=== PATIENT | female | born 1965 | race Caucasian/White ===

== ENCOUNTER 2020-07-04 19:38 | Inpatient (IN) ==
[2020-07-04] MEDS ORDERED: SODIUM CHLORIDE 0.9% 1000ML 1,000 ML IV ONE (20:05)
[2020-07-04] MEDS ORDERED: METOCLOPRAMIDE HCL INJ 5 MG/ML 2 ML VIAL IV STA (20:05)
--- NOTE | 2020-07-04 20:09 | Emergency Department Note ---
Impression & Plan Pneumonia due to COVID-19 virus, Weakness, Breathlessness ED Provider Note Provider: Markus Iraheta MD DATE OF SERVICE: 07/04/2020 CHIEF COMPLAINT: Weakness, shortness of breath HISTORY OF PRESENT ILLNESS: Patient is a 55-year-old female history of hypothyroidism presenting today reporting significant weakness shortness of breath and myalgias over the past several days. Patient states she began to be sick about 8 days ago. Went and was tested 2 days ago at [facility] and told she had coronavirus. Isolating at home with her . He is ill but in better condition than her per her report and states that he has begun to improve. She states she is had dry cough with nausea and some loose stool. Denies significant abdominal pain. States shortness of breath and headache and diffuse myalgias. Denies rash. Denies falls or syncope. Has been using regularly Tylenol and Motrin. Last had Tylenol around 3 PM and Advil around 6 PM. Has been using [id number] medications without significant improvement. States her fevers persisted to be high and she just feels very very weak. Attempted to throw to make her self feel better but this did not help with her nausea. Has tried some Zofran at home for nausea and took symptoms before coming in with mild improvement. Denies leg swelling. REVIEW OF SYSTEMS: A total of 10 review of systems was obtained and negative except as stated above in the HPI. PAST MEDICAL HISTORY: As noted above MEDICATIONS: Reviewed home medication listing SOCIAL HISTORY: , lives at home, non-smoker PHYSICAL EXAM: GENERAL: alert and oriented in no acute distress on stretcher but appears fatigued Head: normocephalic and atraumatic EYES: No injection, discharge or icterus. NECK: Trachea midline. Supple. ENT: Mucous membranes pink and moist. Pharynx without erythema or exudate. LUNGS: Airway patent. No retractions. HEART: Regular rate and rhythm. No chest wall tenderness ABDOMEN: Soft and non-tender, without guarding or rebound. SKIN: Acyanotic, warm, dry, without rashes EXTREMITIES: Without swelling or deformity NEUROLOGICAL: No focal deficits. No aphasia. No facial droop or slurred speech. EK bpm normal sinus rhythm. No PVC or PAC. No acute ST segment elevation or depression appreciated with a normal QTC. There are nonspecific precordial T wave changes. CONTINUOUS CARDIAC MONITORING: was ordered and showed a heart rate of 80s bpm in normal sinus rhythm 1 view chest x-ray: Per my interpretation bilateral predominantly lower lung inflammatory changes without consolidative pneumonia visualized. No large effusions or pneumothorax noted. Patient's laboratory studies and imaging reviewed. Differential includes Infection, dehydration, metabolic abnormality, hypo/hyperglycemia, electrolyte disturbance, anemia, hypoxia, cardiac sources, intracerebral event, toxicologic, neurologic, as well as other pathologies. IMPRESSION/MEDICAL DECISION MAKING: Patient presents with symptomatology is likely related to her diagnosis of COVID-19. However given her significant fevers and persistent symptoms broad differential was entertained. Labs were sent for D-dimer sent. Troponin and EKG were obtained. Just took ibuprofen recently and to close for Tylenol for antipyretic effect. Given some IV fluid as well as Reglan to help with nausea. Chest x-ray obtained and per my interpretation system evidence of inflammatory changes consistent with viral pneumonitis from Covid. No evidence of pneumothorax or classic pneumonia. D-dimer was elevated the CT of the chest will be obtained to exclude PE. Preliminary stat read report as below without evidence of PE. CRP mildly elevated 6.8 likely inflammatory. Leukopenia likely related to Covid also noted. Mild hypokalemia 3.4 but electrolytes otherwise had significant abnormality. Discussed with the patient and states she is havin g some improvement. Is now due for Tylenol which was ordered. Patient felt some improvement of symptoms while here however still felt quite weak and short of breath and given that she desaturated with exertion at home and her general weekend fatigued appearance she wished for further observation here in the hospital and the hospitalist was contacted. DIAGNOSIS: COVID-19 pneumonia, weakness, shortness of breath DISPOSITION: Hospitalist will evaluate Patient was agreeable with this plan. Preliminary Findings Only See Final Report For Complete Findings CTA CHEST: No pulmonary embolus. Bilateral pulmonary infiltrates. Radiologist: Litzy Schaefer M.D. Study ready at 22:09 and initial results transmitted at 22:18 Past Med/Surg History Medical History (Updated 07/04/20 @ 21:09 by Markus Iraheta M.D.) Hypothyroidism Social History Smoking Status: Never smoker Preferred Language: Serbian Feels Safe at Home: Yes Home Meds Home Medications Medication Instructions Recorded Confirmed bupropion HCl 150 mg PO BID 07/28/18 07/28/18 escitalopram oxalate 10 mg PO HS 07/28/18 07/28/18 levothyroxine 100 mg PO DAILY 07/28/18 07/28/18 oseltamivir 75 mg PO DAILY 07/28/18 07/28/18 Results & Data (ED) Vital Signs Vital Signs - 24 hr 07/04/20 19:46 07/04/20 19:59 07/04/20 20:32 Temperature 38.1 C H Temperature Source Temporal Artery Scan Pulse Rate 109 H 84 83 Pulse Rate from SpO2 Sensor 84 83 Respiratory Rate 20 15 20 Blood Pressure 119/63 131/89 101/65 Blood Pressure Mean 81 103 77 Pulse Oximetry 94 97 98 Oxygen Delivery Method Room Air Room Air Room Air Sepsis Recent Fever Within 48 Hours Yes Sepsis New/Unexplained Change in Mental Status No Sepsis Action Taken by Nursing No Action Required 07/04/20 21:00 07/04/20 21:30 Temperature Temperature Source Pulse Rate 85 89 Pulse Rate from SpO2 Sensor 86 89 Respiratory Rate 17 17 Blood Pressure 125/63 120/62 Blood Pressure Mean 83 81 Pulse Oximetry 95 95 Oxygen Delivery Method Room Air Room Air Sepsis Recent Fever Within 48 Hours Sepsis New/Unexplained Change in Mental Status Sepsis Action Taken by Nursing Laboratory Data Result diagrams: 07/04/20 20:18 07/04/20 20:18 Lab Results 07/04/20 07/04/20 07/04/20 Range/Units 20:18 20:18 20:18 WBC 2.59 L (4.8-10.8) K/uL RBC 3.84 L (4.2-5.4) M/uL Hgb 11.9 L (12.0-16.0) g/dL Hct 33.8 L (37-47) % MCV 88.0 (80-100) fL MCH 31.0 (25-34) pg MCHC 35.2 (32-36) g/dL RDW Std Deviation 43.6 (36.4-46.3) fL RDW Coeff of Jillian 13.5 (11.5-14.5) % Plt Count 158 (130-400) K/uL MPV 10.6 H (7.4-10.4) fL Immature Gran % (Auto) 0.0 % Neut % (Auto) 76.9 % Lymph % (Auto) 16.2 % Island % (Auto) 6.9 % Eos % (Auto) 0.0 % Baso % (Auto) 0.0 % Neut # (Auto) 1.99 (1.4-6.5) K/uL Lymph # (Auto) 0.42 L (1.2-3.4) K/uL Island # (Auto) 0.18 (0.11-0.59) K/uL Eos # (Auto) 0.00 (0-0.5) K/uL Baso # (Auto) 0.00 (0-0.2) K/uL Immature Gran # (Auto) 0.00 (0.00-0.02) K/uL PT 9.8 (9.0-12.0) Seconds INR 1.0 (0.9-1.1) D-Dimer 1450 H* (0-500) ug/L FEU Sodium 136 (136-145) mmol/L Potassium 3.4 L (3.5-5.1) mmol/L Chloride 104 (98-107) mmol/L Carbon Dioxide 25 (21-32) mmol/L Anion Gap 7.0 (3-11) BUN 16 (7-18) mg/dl Creatinine 0.96 (0.6-1.2) mg/dl Est Cr Clr Drug Dosing 73.5 ml/min Est GFR ( Amer) 77.7 Est GFR (Non-Af Amer) 67.0 BUN/Creatinine Ratio 16.3 (10-20) Glucose 90 (70-99) mg/dl Lactate (0.4-2.0) mmol/L Calcium 8.6 (8.5-10.1) mg/dl Magnesium 2.0 (1.8-2.4) mg/dl Total Bilirubin 0.3 (0.2-1) mg/dl AST 26 (15-37) U/L ALT 31 (12-78) U/L Alkaline Phosphatase 70 (45-117) U/L Troponin I < 0.015 (0-0.045) ng/ml C-Reactive Protein 6.85 H (0-0.29) mg/dl Total Protein 6.9 (6.4-8.2) gm/dl Albumin 3.4 (3.4-5.0) gm/dl Globulin 3.5 (2.5-4.0) gm/dl Albumin/Globulin Ratio 1.0 (0.9-2) Lipase 183 (73-393) U/L Procalcitonin (0-0.5) ng/ml 07/04/20 07/04/20 Range/Units 20:18 20:18 WBC (4.8-10.8) K/uL RBC (4.2-5.4) M/uL Hgb (12.0-16.0) g/dL Hct (37-47) % MCV (80-100) fL MCH (25-34) pg MCHC (32-36) g/dL RDW Std Deviation (36.4-46.3) fL RDW Coeff of Jillian (11.5-14.5) % Plt Count (130-400) K/uL MPV (7.4-10.4) fL Immature Gran % (Auto) % Neut % (Auto) % Lymph % (Auto) % Island % (Auto) % Eos % (Auto) % Baso % (Auto) % Neut # (Auto) (1.4-6.5) K/uL Lymph # (Auto) (1.2-3.4) K/uL Island # (Auto) (0.11-0.59) K/uL Eos # (Auto) (0-0.5) K/uL Baso # (Auto) (0-0.2) K/uL Immature Gran # (Auto) (0.00-0.02) K/uL PT (9.0-12.0) Seconds INR (0.9-1.1) D-Dimer (0-500) ug/L FEU Sodium (136-145) mmol/L Potassium (3.5-5.1) mmol/L Chloride (98-107) mmol/L Carbon Dioxide (21-32) mmol/L Anion Gap (3-11) BUN (7-18) mg/dl Creatinine (0.6-1.2) mg/dl Est Cr Clr Drug Dosing ml/min Est GFR ( Amer) Est GFR (Non-Af Amer) BUN/Creatinine Ratio (10-20) Glucose (70-99) mg/dl Lactate 1.2 (0.4-2.0) mmol/L Calcium (8.5-10.1) mg/dl Magnesium (1.8-2.4) mg/dl Total Bilirubin (0.2-1) mg/dl AST (15-37) U/L ALT (12-78) U/L Alkaline Phosphatase (45-117) U/L Troponin I (0-0.045) ng/ml C-Reactive Protein (0-0.29) mg/dl Total Protein (6.4-8.2) gm/dl Albumin (3.4-5.0) gm/dl Globulin (2.5-4.0) gm/dl Albumin/Globulin Ratio (0.9-2) Lipase (73-393) U/L Procalcitonin < 0.05 (0-0.5) ng/ml Administered Medications Discontinued Medications Acetaminophen (Acetaminophen 500 Mg Tab) 1,000 mg PO NOW STA Stop: 07/04/20 21:29 Last Admin: 07/04/20 21:33 Dose: 1,000 mg Documented by: [id number] Sodium Chloride (Nss 1000ml) 1,000 mls @ 999 mls/hr IV .Q1H1M ONE Stop: 07/04/20 21:05 Last Infusion: 07/04/20 21:33 Dose: 0 mls/hr Documented by: [id number] Admin: 07/04/20 20:35 Dose: 999 mls/hr Documented by: [id number] Ioversol (Optiray 320 125ml) 115 ml IV ONCE ONE Stop: 07/04/20 21:57 Last Admin: 07/04/20 21:59 Dose: 115 ml Documented by: [id number] Metoclopramide HCl (Metoclopramide Hcl Inj 5 Mg/Ml 2 Ml Vial) 10 mg IV NOW STA Stop: 07/04/20 20:06 Last Admin: 07/04/20 20:35 Dose: 10 mg Documented by: [id number] Discharge Plan Visit Data Chief Complaint: Shortness of Breath/Dyspnea Stated Complaint: COVID POSITIVE, SOB ED Provider: Markus Iraheta Discharge Problem: Pneumonia due to COVID-19 virus, Weakness, Breathlessness Patient Disposition: Being Evaluated by Hospitalist Forms Stand Alone Forms: My [facility] [place] Patent Invarium Prescriptions Prescriptions: No Action bupropion HCl 150 mg tablet sustained-release 12 hr 150 mg PO BID RF: 0 levothyroxine 100 mcg tablet 100 mg PO DAILY RF: 0 oseltamivir 75 mg capsule 75 mg PO DAILY RF: 0 escitalopram oxalate 10 mg tablet 10 mg PO HS RF: 0 Referrals Referrals: Emma Howell DO [Primary Care Provider] -
[2020-07-04 20:49] LABS: Prothrombin Time 9.8 Seconds (9.0-12.0)
[2020-07-04 20:53] LABS: Hematocrit (blood only) 33.8 % (37-47); Hemoglobin 11.9 g/dL (12.0-16.0); Lymphocytes # (auto) 0.42 K/uL (1.2-3.4); Lymphocytes % (auto) 16.2 %; Mean Corpuscular Hgb Conc 35.2 g/dL (32-36); Mean Platelet Volume 10.6 fL (7.4-10.4); Monocytes # (auto) 0.18 K/uL (0.11-0.59); Monocytes % (auto) 6.9 %; Neutrophils # (auto) 1.99 K/uL (1.4-6.5); Neutrophils % (auto) 76.9 %; Platelet Count 158 K/uL (130-400); RDW Coefficient of Variation 13.5 % (11.5-14.5); RDW Standard Deviation 43.6 fL (36.4-46.3); Red Blood Count 3.84 M/uL (4.2-5.4); White Blood Count 2.59 K/uL (4.8-10.8)
[2020-07-04 21:01] LABS: D Dimer 1450 ug/L FEU (0-500)
[2020-07-04 21:03] LABS: Alanine Aminotransferase 31 U/L (12-78); Albumin Level 3.4 gm/dl (3.4-5.0); Aspartate Aminotransferase 26 U/L (15-37); BUN Creatinine Ratio 16.3 (10-20); Blood Urea Nitrogen 16 mg/dl (7-18); C Reactive Protein 6.85 mg/dl (0-0.29); Calcium 8.6 mg/dl (8.5-10.1); Carbon Dioxide 25 mmol/L (21-32); Chloride 104 mmol/L (98-107); Creatinine Clr Calc Pharmacy 73.5 ml/min; Est GFR (African American) 77.7; Glucose 90 mg/dl (70-99); Lipase 183 U/L (73-393); Potassium 3.4 mmol/L (3.5-5.1); Sodium 136 mmol/L (136-145)
[2020-07-04 21:08] LABS: Alkaline Phosphatase 70 U/L (45-117); Bilirubin,Total 0.3 mg/dl (0.2-1); Globulin 3.5 gm/dl (2.5-4.0); Total Protein 6.9 gm/dl (6.4-8.2); Troponin I < 0.015 ng/ml (0-0.045)
--- NOTE | 2020-07-04 21:13 | XRay Report ---
XR chest 1V portable HISTORY: Fever COMPARISON: None. FINDINGS: No pneumothorax. No pleural effusions. The heart is normal in size. There are patchy bilate ral mid to lower lung zone airspace opacities. This likely represents a viral pneumonia. No evidence for pulmonary edema. Dextroscoliosis of the thoracic spine. IMPRESSION: Patchy bilateral mid to lower lung zone airspace opacities. This likely represents a viral pneumonia. ACT 112: Negative or not required by law. Electronically signed by: Marc Morales M.D. 07/04/2020 9:11 PM
[2020-07-04] MEDS ORDERED: ACETAMINOPHEN 500 MG TAB PO STA (21:28)
[2020-07-04] MEDS ORDERED: POTASSIUM CHLORIDE CRTAB 20 MEQ TABCR PO STA (21:45)
[2020-07-04] MEDS ORDERED: OPTIRAY 320 125ml IV ONE (21:56)
--- NOTE | 2020-07-04 23:18 | History & Physical Report ---
Date of Service July 04, 2020 Assessment & Plan (1) Pneumonia due to COVID-19 virus: Patient nontoxic. mood disorder, at baseline hypothyroidism, euthyroid as of recent outpatient TSH Hypokalemia secondary to poor p.o. intake F Supportive management for non-severe COVID-19 illness. IVF, replace potassium DVT prophylaxis with Lovenox subcu Full code Text document was generated using [employer] voice recognition software. It may contain grammatical or spelling errors. Kindly contact undersigned for clarification of any documentation item in question. History of Present Illness Chief Complaint: Shortness of breath, chest heaviness Primary Care Provider: Emma Howell DO History obtained from patient and records. Medical history significant for mood disorder, hypothyroidism, gestational DM as per records. Eight days ago patient noted fever, chills, nausea, dry cough, chest congestion symptoms. Sick COVID-19 contacts at home. 2 days ago, patient noted chest heaviness and shortness of breath. Outpatient COVID-19 test was positive. Home care and quarantine recommended by PCP. Patient consulted ER for worsening symptoms. Patient uncomfortable going home. Medical History as above Surgical History : Bladder surgery, colposcopy Family History : Colon cancer, stroke Personal/Social history : Non-smoker, occasional EtOH intake, art director Allergies Allergy/AdvReac Type Severity Reaction Status Date / Time amphetamine [From Adderall] Allergy Severe BLISTERED Verified 07/04/20 23:03 SORES ON ENTIRE BACK OF BODY dextroamphetamine Allergy Severe BLISTERED Verified 07/04/20 23:03 [From Adderall] SORES ON ENTIRE BACK OF BODY povidone-iodine Allergy Intermediate SKIN Verified 07/04/20 23:03 [From Betadine] IRRITATION IF EXPOSED soap [From Betadine] Allergy Intermediate SKIN Verified 07/04/20 23:03 IRRITATION IF EXPOSED Sulfa (Sulfonamide Allergy Intermediate TRAVIS Verified 07/04/20 23:03 Antibiotics) SYNDROME nickel Allergy Mild SKIN Verified 07/04/20 23:03 IRRITATION latex Allergy Rash Verified 07/05/20 03:36 zolpidem [From Ambien] Allergy Rash Verified 07/05/20 00:44 Home Medications Medication Instructions Recorded Confirmed Type bupropion HCl 150 mg PO BID17 07/28/18 07/05/20 History escitalopram oxalate 10 mg PO HS 07/28/18 07/04/20 History levothyroxine 100 mg PO DAILY 07/28/18 07/04/20 History Lactobacillus acidophilus 10,000 mmu cells PO DAILY 07/04/20 07/04/20 History [Probiotic] modafinil See Rx Instructions .ROUTE .COMPLEX 07/04/20 07/05/20 History multivitamin 1 tab PO DAILY 07/04/20 07/04/20 History omega 2-dwo-fzy-fish oil [Fish Oil] 1 cap PO DAILY 07/04/20 07/04/20 History ondansetron 4 mg PO DIRECTED PRN 07/04/20 07/04/20 History turmeric 400 mg PO DAILY 07/04/20 07/04/20 History Past Med/Surg History Medical History (Updated 07/04/20 @ 21:09 by Markus Iraheta M.D.) Hypothyroidism Social History Smoking Status: Never smoker Hx Alcohol Use: No Hx Substance Use: No Preferred Language: Georgian Communication Ability: Effective Beliefs That Will Affect Care: None Current Living Situation: Family Other Information That Helps Us Care for You: No Feels Safe at Home: Yes Safety Concerns: Feels Safe At This Time Assistive Devices: Glasses Review of Systems Review of Systems: As per HPI, all 10 systems reviewed, all other ROS negative Physical Exam Physical Exam: GENERAL: Slightly uncomfortable, slightly anxious, pleasant, no respiratory distress SKIN: Normal color, warm HEENT: Bespectacled, pink palpebral conjunctivae, no ptosis, dry buccal mucosa NECK : Supple, no tenderness CHEST : Decreased breath sounds, anterior chest wall tenderness HEART : RRR, no obvious murmurs ABDOMEN: Some distention, nontender EXTREMITIES : No LE swelling/tenderness, no other conspicuous deformities noted NEUROLOGIC : Coherent, no facial asymmetry, no other gross focality Results & Data Results & Data ([facility]) Vital Signs (Past 12 Hours) Vital Signs Temp Pulse Resp BP Pulse Ox 07/04/20 21:30 89 17 120/62 95 07/04/20 21:00 85 17 125/63 95 07/04/20 20:32 83 20 101/65 98 07/04/20 19:59 84 15 131/89 97 07/04/20 19:46 38.1 C H 109 H 20 119/63 94 Laboratory Results Laboratory Results WBC 2.59 K/uL (4.8-10.8) L 07/04/20 20:18 RBC 3.84 M/uL (4.2-5.4) L 07/04/20 20:18 Hgb 11.9 g/dL (12.0-16.0) L 07/04/20 20:18 Hct 33.8 % (37-47) L 07/04/20 20:18 MCV 88.0 fL (80-100) 07/04/20 20:18 MCH 31.0 pg (25-34) 07/04/20 20:18 MCHC 35.2 g/dL (32-36) 07/04/20 20:18 RDW Std Deviation 43.6 fL (36.4-46.3) 07/04/20 20:18 RDW Coeff of Jillian 13.5 % (11.5-14.5) 07/04/20 20:18 Plt Count 158 K/uL (130-400) 07/04/20 20:18 MPV 10.6 fL (7.4-10.4) H 07/04/20 20:18 Immature Gran % (Auto) 0.0 % 07/04/20 20:18 Neut % (Auto) 76.9 % 07/04/20 20:18 Lymph % (Auto) 16.2 % 07/04/20 20:18 Meagher % (Auto) 6.9 % 07/04/20 20:18 Eos % (Auto) 0.0 % 07/04/20 20:18 Baso % (Auto) 0.0 % 07/04/20 20:18 Neut # (Auto) 1.99 K/uL (1.4-6.5) 07/04/20 20:18 Lymph # (Auto) 0.42 K/uL (1.2-3.4) L 07/04/20 20:18 Meagher # (Auto) 0.18 K/uL (0.11-0.59) 07/04/20 20:18 Eos # (Auto) 0.00 K/uL (0-0.5) 07/04/20 20:18 Baso # (Auto) 0.00 K/uL (0-0.2) 07/04/20 20:18 Immature Gran # (Auto) 0.00 K/uL (0.00-0.02) 07/04/20 20:18 PT 9.8 Seconds (9.0-12.0) 07/04/20 20:18 INR 1.0 (0.9-1.1) 07/04/20 20:18 D-Dimer 1450 ug/L FEU (0-500) H* 07/04/20 20:18 Sodium 136 mmol/L (136-145) 07/04/20 20:18 Potassium 3.4 mmol/L (3.5-5.1) L 07/04/20 20:18 Chloride 104 mmol/L (98-107) 07/04/20 20:18 Carbon Dioxide 25 mmol/L (21-32) 07/04/20 20:18 Anion Gap 7.0 (3-11) 07/04/20 20:18 BUN 16 mg/dl (7-18) 07/04/20 20:18 Creatinine 0.96 mg/dl (0.6-1.2) 07/04/20 20:18 Est Cr Clr Drug Dosing 73.5 ml/min 07/04/20 20:18 Est GFR ( Amer) 77.7 07/04/20 20:18 Est GFR (Non-Af Amer) 67.0 07/04/20 20:18 BUN/Creatinine Ratio 16.3 (10-20) 07/04/20 20:18 Glucose 90 mg/dl (70-99) 07/04/20 20:18 Lactate 1.2 mmol/L (0.4-2.0) 07/04/20 20:18 Calcium 8.6 mg/dl (8.5-10.1) 07/04/20 20:18 Magnesium 2.0 mg/dl (1.8-2.4) 07/04/20 20:18 Total Bilirubin 0.3 mg/dl (0.2-1) 07/04/20 20:18 AST 26 U/L (15-37) 07/04/20 20:18 ALT 31 U/L (12-78) 07/04/20 20:18 Alkaline Phosphatase 70 U/L (45-117) 07/04/20 20:18 Troponin I < 0.015 ng/ml (0-0.045) 07/04/20 20:18 C-Reactive Protein 6.85 mg/dl (0-0.29) H 07/04/20 20:18 Total Protein 6.9 gm/dl (6.4-8.2) 07/04/20 20:18 Albumin 3.4 gm/dl (3.4-5.0) 07/04/20 20:18 Globulin 3.5 gm/dl (2.5-4.0) 07/04/20 20:18 Albumin/Globulin Ratio 1.0 (0.9-2) 07/04/20 20:18 Lipase 183 U/L (73-393) 07/04/20 20:18 Procalcitonin < 0.05 ng/ml (0-0.5) 07/04/20 20:[address] chest initial read: No pulmonary embolus. Bilateral pulmonary infiltrates EKG as per my interpretation : Rate 80, NSR, normal axis, T wave abnormality septal leads
[2020-07-05] MEDS ORDERED: LEVALBUTEROL TARTRATE 15 GM HFA.AER.AD INH STA (01:05)
[2020-07-05] MEDS ORDERED: traMADol HCL 50 MG TABLET PO PRN (01:05)
[2020-07-05] MEDS ORDERED: ACETAMINOPHEN 325 MG TAB PO PRN (01:05)
[2020-07-05] MEDS ORDERED: LORazepam 0.5 MG/1 ML VIAL IV PRN (01:05)
[2020-07-05] MEDS ORDERED: buPROPion SR 150 MG TABCR PO SCH (01:05)
[2020-07-05] MEDS ORDERED: POTASSIUM CHLORIDE 40 MEQ in SODIUM CHLORIDE 0.9% 1000ML 1,000 ML IV ONE (01:45)
[2020-07-05] MEDS: guaiFENesin 600 MG TABCR PO SCH ×3 (02:06→20:33)
[2020-07-05] MEDS: ESCITALOPRAM OXALATE 10 MG TAB PO SCH ×2 (02:06→20:33)
[2020-07-05] MEDS: LEVOTHYROXINE SODIUM 100 MCG TABLET PO SCH (05:28)
[2020-07-05 05:50] LABS: Appearance Urine Clear (Clear); Bacteria Urine Automated Negative (Negative); Bilirubin Urine Negative (Negative); Blood Urine Trace (Negative); Cast Urine Automated 0 /lpf (0-5); Color Urine Yellow; Epithelial Cell Urine Auto 20-30 /lpf (0-5); Glucose Urine UA Negative (Negative); Ketones Urine Negative (Negative); Leukocyte Esterase Urine Trace (Negative); Nitrite Urine Negative (Negative); Protein Urine Negative (Negative); RBC Urine Automated 0-4 /hpf (0-4); Urobilinogen Urine Negative (Negative)
[2020-07-05 07:01] LABS: Hematocrit (blood only) 35.1 % (37-47); Hemoglobin 11.8 g/dL (12.0-16.0); Immature Granulocytes # (auto) 0.01 K/uL (0.00-0.02); Immature Granulocytes % (auto) 0.4 %; Lymphocytes # (auto) 0.44 K/uL (1.2-3.4); Lymphocytes % (auto) 16.3 %; Mean Corpuscular Hemoglobin 30.6 pg (25-34); Mean Corpuscular Hgb Conc 33.6 g/dL (32-36); Mean Corpuscular Volume 90.9 fL (80-100); Mean Platelet Volume 10.4 fL (7.4-10.4); Monocytes # (auto) 0.18 K/uL (0.11-0.59); Monocytes % (auto) 6.7 %; Neutrophils # (auto) 2.07 K/uL (1.4-6.5); Neutrophils % (auto) 76.6 %; Platelet Count 135 K/uL (130-400); RDW Coefficient of Variation 13.8 % (11.5-14.5); RDW Standard Deviation 46.3 fL (36.4-46.3); Red Blood Count 3.86 M/uL (4.2-5.4)
[2020-07-05 07:53] LABS: BUN Creatinine Ratio 13.9 (10-20); Calcium 7.7 mg/dl (8.5-10.1); Creatinine Clr Calc Pharmacy 90.9 ml/min; Est GFR (African American) 99.9; Est GFR (Non-African American) 86.2
[2020-07-05 08:04] LABS: Ferritin 229.5 ng/ml (8-388)
--- NOTE | 2020-07-05 08:18 | CT Scan Report ---
CT ANGIOGRAM OF THE CHEST CLINICAL HISTORY: Dyspnea. Elevated d-dimer. Covid. COMPARISON STUDY: Chest x-ray dated 07/04/2020. TECHNIQUE: Following the IV administration of 115 cc of Optiray 320, CT angiogram of the chest was pe rformed from the upper abdomen to the thoracic inlet utilizing the pulmonary embolus protocol. Images are reviewed in the axial, sagittal, and coronal planes. 3-D MIPS images are created and assessed. I V contrast was administered without complication. A dose lowering technique was utilized adhering to the principles of ALARA. CT DOSE: 345.75 mGy.cm FINDINGS: Thyroid: Atrophic. Thoracic aorta: The thoracic aorta is normal in caliber and demonstrates standard 3-vessel arch anato my. No dissection is seen. Pulmonary vasculature: The pulmonary trunk is normal in caliber. There are no filling defects identif ied in main, lobar, or segmental pulmonary branches to suggest pulmonary embolus. Heart: The heart is normal in size and without pericardial effusion. Lungs and pleural spaces: Multifocal airspace consolidation is seen throughout both lungs. No pleural effusion is identified. The trachea and central airways are clear. Mediastinum: There is no mediastinal lymphadenopathy. Connie: Clear. Axillae: There is no axillary lymphadenopathy. Upper abdomen: Partially visualized upper abdominal viscera is within normal limits. Skeletal structures: No lytic or blastic bony lesions are seen. IMPRESSION: 1. There is no evidence of pulmonary embolus in the main, lobar, or segmental pulmonary arteries. 2. Multifocal airspace consolidation is seen throughout both lungs. The appearance is consistent with the reported history of a viral pneumonia. Radiographic follow-up to resolution is recommended. 3. No pleural effusion is identified. 4. Additional findings as above. ACT 112: Negative or not required by law. Electronically signed by: Arvind Girard M.D. 07/05/2020 8:17 AM
[2020-07-05] MEDS: MULTIVITAMIN TAB PO SCH (08:50)
[2020-07-05] MEDS: buPROPion SR 150 MG TABCR PO SCH ×2 (08:50→18:33)
[2020-07-05] MEDS: ADVANCED PROBIOTIC 1250 MG CAPSULE PO SCH (08:52)
[2020-07-05] MEDS: ENOXAPARIN INJ 40 MG/0.4 ML SYR SQ SCH (08:53)
[2020-07-05] MEDS ORDERED: NON-FORMULARY MEDICATION (Lactobacillus Acidophilus [Probiotic] 10 billion cell Capsule) PO SCH (09:00)
[2020-07-05] MEDS ORDERED: dexAMETHasone 6 MG in SYRINGE 0 ML IV SCH (09:15)
[2020-07-05] MEDS: modafiniL 100 MG TAB PO SCH ×2 (10:01→13:16)
[2020-07-05] MEDS: FAMOTIDINE 10 MG TABLET PO SCH ×2 (10:02→20:33)
[2020-07-05] MEDS: DOXYCYCLINE HYCLATE 100 MG CAP PO SCH ×2 (10:02→20:34)
--- NOTE | 2020-07-05 13:36 | Hospitalist Progress Note ---
Date of Service July 05, 2020 Assessment & Plan (1) Pneumonia due to COVID-19 virus: Multifocal COVID pneumonia -CTA: There is no evidence of pulmonary embolus in the main, lobar, or segmental pulmonary arteries. Multifocal airspace consolidation is seen throughout both lungs. The appearance is consistent with the reported history of a viral pneumonia. Radiographic follow-up to resolution is recommended. No pleural effusion is identified. Procalcitonin: 0.05 Troponin negative CRP:6.85 Ferritin:229 D-Dimer:1450 Blood Cultures obtained Oxygen levels transiently dropped to 92% as per records No indication for Remdesivir, Coalescent plasma given onset of symptoms Isolation precautions--Airborne/Contact Encourage frequent Proning Lasix as needed Started on Dexamethasone DVT prophylaxis with Lovenox Patient understands and agrees with current management Mood disorder Stable Continue home medication Hypothyroidism Continue levothyroxine Hypokalemia Replace electrolytes as needed DVT Px: Lovenox SQ Code Status Full code Disposition Expected discharge home when medically stable Admission and Anticipated Discharge Date Admission Date: July 04, 2020 Subjective Patient is seen and examined at bedside Reports having intermittent nonexpectorant cough Also states having some dyspnea with chest tightness on exertion Eye pain, headache resolved Also states having minimal dizziness with position change Denies nausea, vomiting, abdominal pain, diarrhea Offers no other complaints Review of Systems Review of Systems: All systems reviewed & are unremarkable except as noted in HPI & below Physical Exam Physical Exam: Physical Exam: Vitals signs as noted above General Appearance:Moderately built and nourished, no apparent distress Head: normocephalic, Atraumatic Eyes: normal inspection, EOMI Neck: supple, Trachea midline Respiratory/Chest: Decreased breath sounds, Scattered crackles Cardiovascular: S1, S2, No murmur Abdomen/GI:Soft, Non tender, Bowel sounds present Extremities/Musculoskelatal:normal inspection, no edema Neurologic/Psych:AAOX3, grossly no focal neurological deficits Skin: normal color, warm Results & Data Results & Data ([facility]) Vital Signs (Past 12 Hours) Vital Signs Pulse Resp Pulse Ox 07/05/20 01:45 79 18 94 07/05/20 01:29 95 Laboratory Results Short CBC 07/04/20 07/05/20 Range/Units 20:18 06:20 WBC 2.59 L 2.70 L (4.8-10.8) K/uL Hgb 11.9 L 11.8 L (12.0-16.0) g/dL Hct 33.8 L 35.1 L (37-47) % Plt Count 158 135 (130-400) K/uL BMP 07/04/20 07/05/20 20:18 06:20 Sodium 136 141 Potassium 3.4 L 4.0 D Chloride 104 112 H Carbon Dioxide 25 25 BUN 16 11 Creatinine 0.96 0.78 Glucose 90 92 Calcium 8.6 7.7 L Cardiac Enzymes 07/04/20 Range/Units 20:18 Troponin I < 0.015 (0-0.045) ng/ml Liver Function 07/04/20 Range/Units 20:18 Total Bilirubin 0.3 (0.2-1) mg/dl AST 26 (15-37) U/L ALT 31 (12-78) U/L Alkaline Phosphatase 70 (45-117) U/L Albumin 3.4 (3.4-5.0) gm/dl Urine 07/05/20 Range/Units Unknown Urine Color Yellow Urine Appearance Clear (Clear) Urine pH 7.0 (4.5-7.5) Ur Specific [place] 1.030 (1.000-1.030) Urine Protein Negative (Negative) Urine Glucose (UA) Negative (Negative)
--- NOTE | 2020-07-05 15:10 | Electrocardiogram Report ---
Test Reason : Blood Pressure : / mmHG Vent. Rate : 082 BPM Atrial Rate : 082 BPM P-R Int : 144 ms QRS Dur : 092 ms QT Int : 374 ms P-R-T Axes : 068 058 066 degrees QTc Int : 436 ms Normal sinus rhythm Borderline Nonspecific T wave abnormality Borderline ECG No previous ECGs available Confirmed by Joaquin Potts ([id number]) on 07/05/2020 3:10:05 PM Referred By: REFERRED SELF Confirmed By:Joaquin Potts
[2020-07-05] MEDS: LEVALBUTEROL TARTRATE 15 GM HFA.AER.AD INH PRN (18:53)
[2020-07-06] MEDS ORDERED: ALBUTEROL HFA 8 GM INHALER INH ONE (04:24)
[2020-07-06] MEDS: dexAMETHasone 6 MG in SYRINGE 0 ML IV SCH (04:33)
[2020-07-06] MEDS: LEVOTHYROXINE SODIUM 100 MCG TABLET PO SCH (04:46)
--- NOTE | 2020-07-06 05:45 | Communication Note ---
Date of Service: July 06, 2020 Notified by RN around 4:20 AM of patient complaining of shortness of breath. O2 sats 85-88 on room air as per RN. Chest x-ray as per my interpretation bilateral airspace opacities AP Acute hypoxemic respiratory failure Severe COVID-19 pneumonia Baseline ABG Facilitate Decadron Initiate Remdesivir (Patient was counseled regarding potential adverse effects from Remdesivir therapy. Patient also agreeable to convalescent plasma if warranted. Verbal consent obtained for blood product administration.) MDI RTC Will relay to AM provider.
[2020-07-06 06:05] LABS: Hematocrit (blood only) 31.2 % (37-47); Hemoglobin 10.9 g/dL (12.0-16.0); Immature Granulocytes # (auto) 0.01 K/uL (0.00-0.02); Immature Granulocytes % (auto) 0.3 %; Lymphocytes # (auto) 0.38 K/uL (1.2-3.4); Lymphocytes % (auto) 10.4 %; Mean Corpuscular Hemoglobin 30.8 pg (25-34); Mean Corpuscular Hgb Conc 34.9 g/dL (32-36); Mean Corpuscular Volume 88.1 fL (80-100); Mean Platelet Volume 9.8 fL (7.4-10.4); Monocytes # (auto) 0.34 K/uL (0.11-0.59); Monocytes % (auto) 9.3 %; Neutrophils # (auto) 2.94 K/uL (1.4-6.5); Platelet Count 157 K/uL (130-400); RDW Coefficient of Variation 13.6 % (11.5-14.5); RDW Standard Deviation 44.9 fL (36.4-46.3); Red Blood Count 3.54 M/uL (4.2-5.4); White Blood Count 3.67 K/uL (4.8-10.8)
[2020-07-06 06:13] LABS: Base Excess ABG -0.7 mEq/L (-9-1.8); HCO3 ABG 22 mmol/L (19-24); Oxygen Saturation ABG 95.2 % (90-95); PCO2 ABG 31 mmHg (35-46); PO2 ABG 68 mmHg (80-95); pH ABG 7.47 (7.35-7.45)
[2020-07-06 06:15] LABS: Allen Test Pos (Pos)
[2020-07-06] MEDS ORDERED: REMDESIVIR 200 MG in SODIUM CHLORIDE 0.9% 210 ML IV ONE (06:30)
[2020-07-06 06:40] LABS: Alanine Aminotransferase 31 U/L (12-78); Albumin Level 2.9 gm/dl (3.4-5.0); Aspartate Aminotransferase 30 U/L (15-37); BUN Creatinine Ratio 14.7 (10-20); Bilirubin Direct < 0.1 mg/dl (0-0.2); Blood Urea Nitrogen 11 mg/dl (7-18); Calcium 8.6 mg/dl (8.5-10.1); Carbon Dioxide 22 mmol/L (21-32); Chloride 105 mmol/L (98-107); Creatinine Clr Calc Pharmacy 98.5 ml/min; Est GFR (Non-African American) 94.9; Glucose 91 mg/dl (70-99); Magnesium 1.8 mg/dl (1.8-2.4); Potassium 3.6 mmol/L (3.5-5.1); Sodium 136 mmol/L (136-145)
[2020-07-06 06:43] LABS: Alkaline Phosphatase 55 U/L (45-117); Bilirubin,Total 0.4 mg/dl (0.2-1); Total Protein 6.4 gm/dl (6.4-8.2)
[2020-07-06] MEDS ORDERED: MAGNESIUM SULFATE / D5W 1 GM/100 ML BAG IV ONE (07:30)
[2020-07-06] MEDS ORDERED: POTASSIUM CHLORIDE CRTAB 20 MEQ TABCR PO ONE (07:30)
[2020-07-06] MEDS: ALBUTEROL HFA 8 GM INHALER INH SCH ×2 (07:41→11:27)
--- NOTE | 2020-07-06 08:09 | XRay Report ---
XR chest 1V portable HISTORY: Hypoxia. COMPARISON: Chest 07/04/2020. FINDINGS: Bibasilar and left midlung zone airspace opacities are again noted. This is similar to the prior study. No pneumothorax. No pleural effusions. The heart is top normal in size. There is mild de xtroscoliosis of the thoracic spine. IMPRESSION: Multifocal airspace opacities remain unchanged. This likely represents a viral pneumonia. ACT 112: Negative or not required by law. Electronically signed by: Marc Morales M.D. 07/06/2020 8:07 AM
[2020-07-06] MEDS: modafiniL 100 MG TAB PO SCH ×2 (09:04→13:08)
[2020-07-06] MEDS: ENOXAPARIN INJ 40 MG/0.4 ML SYR SQ SCH (09:05)
[2020-07-06] MEDS: SODIUM CHLORIDE 0.9% 10ML FLUSH IV SCH (09:07)
[2020-07-06] MEDS: ADVANCED PROBIOTIC 1250 MG CAPSULE PO SCH (09:07)
[2020-07-06] MEDS: FAMOTIDINE 10 MG TABLET PO SCH ×2 (09:07→20:53)
[2020-07-06] MEDS: buPROPion SR 150 MG TABCR PO SCH ×2 (09:08→18:06)
[2020-07-06] MEDS: guaiFENesin 600 MG TABCR PO SCH ×2 (09:08→20:53)
[2020-07-06] MEDS: MULTIVITAMIN TAB PO SCH (09:09)
[2020-07-06] MEDS: DOXYCYCLINE HYCLATE 100 MG CAP PO SCH ×2 (09:10→20:54)
[2020-07-06] MEDS ORDERED: ALBUTEROL HFA 8 GM INHALER INH PRN (12:51)
--- NOTE | 2020-07-06 13:42 | Hospitalist Progress Note ---
Date of Service July 06, 2020 Assessment & Plan (1) Pneumonia due to COVID-19 virus: Multifocal COVID pneumonia -CTA: There is no evidence of pulmonary embolus in the main, lobar, or segmental pulmonary arteries. Multifocal airspace consolidation is seen throughout both lungs. The appearance is consistent with the reported history of a viral pneumonia. Radiographic follow-up to resolution is recommended. No pleural effusion is identified. Procalcitonin: 0.05 Troponin negative CRP:6.85 Ferritin:229 D-Dimer:1450 Blood Cultures: No growth to date Continue Remdesivir, Dexamethasone as per protocol Isolation precautions--Airborne/Contact Encourage frequent Proning Lasix as needed DVT prophylaxis with Lovenox Continue supplemental oxygen as needed Mood disorder Stable Continue home medication Hypothyroidism Continue levothyroxine Hypokalemia Replace electrolytes as needed DVT Px: Lovenox SQ Code Status Full code Disposition Expected discharge home when medically stable Admission and Anticipated Discharge Date Admission Date: July 04, 2020 Subjective Patient is seen and examined at bedside Patient had an episode of dyspnea on exertion associated with dizziness earlier this morning which currently resolved Required 2 L of supplemental oxygen to maintain saturations CXR unchanged from prior Less cough and Dyspnea today Denies chest pain, nausea, vomiting, abdominal pain, diarrhea Review of Systems Review of Systems: All systems reviewed & are unremarkable except as noted in HPI & below Physical Exam Physical Exam: Physical Exam: Vitals signs as noted above General Appearance:Moderately built and nourished, no apparent distress Head: normocephalic, Atraumatic Eyes: normal inspection, EOMI Neck: supple, Trachea midline Respiratory/Chest: Decreased breath sounds, CTA Cardiovascular: S1, S2, No murmur Abdomen/GI:Soft, Non tender, Bowel sounds present Extremities/Musculoskelatal:normal inspection, no edema Neurologic/Psych:AAOX3, grossly no focal neurological deficits Skin: normal color, warm Results & Data Results & Data ([facility]) Vital Signs (Past 12 Hours) Vital Signs Temp Pulse Resp BP Pulse Ox 07/06/20 11:29 93 H 19 93 07/06/20 07:41 78 20 92 07/06/20 07:35 37.5 C 81 18 111/75 93 07/06/20 05:10 94 07/06/20 04:41 93 07/06/20 04:40 80 20 93 07/06/20 04:37 93 07/06/20 04:09 37.2 C 80 20 94/62 L 85 L Laboratory Results Short CBC 07/06/20 Range/Units 05:55 WBC 3.67 L (4.8-10.8) K/uL Hgb 10.9 L (12.0-16.0) g/dL Hct 31.2 L (37-47) % Plt Count 157 (130-400) K/uL BMP 07/06/20 05:55 Sodium 136 Potassium 3.6 Chloride 105 Carbon Dioxide 22 BUN 11 Creatinine 0.72 Glucose 91 Calcium 8.6 Liver Function 07/06/20 Range/Units 05:55 Total Bilirubin 0.4 (0.2-1) mg/dl Direct Bilirubin < 0.1 (0-0.2) mg/dl AST 30 (15-37) U/L ALT 31 (12-78) U/L Alkaline Phosphatase 55 (45-117) U/L Albumin 2.9 L (3.4-5.0) gm/dl
[2020-07-06] MEDS: LEVALBUTEROL TARTRATE 15 GM HFA.AER.AD INH PRN (20:02)
[2020-07-06] MEDS: ESCITALOPRAM OXALATE 10 MG TAB PO SCH (20:53)
[2020-07-07] MEDS: LEVOTHYROXINE SODIUM 100 MCG TABLET PO SCH (05:30)
[2020-07-07 06:43] LABS: Hematocrit (blood only) 34.4 % (37-47); Hemoglobin 11.5 g/dL (12.0-16.0); Immature Granulocytes # (auto) 0.03 K/uL (0.00-0.02); Immature Granulocytes % (auto) 1.1 %; Lymphocytes # (auto) 0.69 K/uL (1.2-3.4); Lymphocytes % (auto) 24.6 %; Mean Corpuscular Hemoglobin 30.5 pg (25-34); Mean Corpuscular Hgb Conc 33.4 g/dL (32-36); Mean Corpuscular Volume 91.2 fL (80-100); Mean Platelet Volume 10.1 fL (7.4-10.4); Monocytes # (auto) 0.41 K/uL (0.11-0.59); Monocytes % (auto) 14.6 %; Neutrophils # (auto) 1.68 K/uL (1.4-6.5); Neutrophils % (auto) 59.7 %; Platelet Count 173 K/uL (130-400); Red Blood Count 3.77 M/uL (4.2-5.4); White Blood Count 2.81 K/uL (4.8-10.8)
[2020-07-07 07:15] LABS: Alanine Aminotransferase 66 U/L (12-78); Aspartate Aminotransferase 54 U/L (15-37); BUN Creatinine Ratio 27.9 (10-20); Bilirubin Direct < 0.1 mg/dl (0-0.2); Blood Urea Nitrogen 21 mg/dl (7-18); Calcium 8.4 mg/dl (8.5-10.1); Carbon Dioxide 24 mmol/L (21-32); Chloride 111 mmol/L (98-107); Creatinine Clr Calc Pharmacy 93.3 ml/min; Est GFR (African American) 103.1; Est GFR (Non-African American) 88.9; Glucose 72 mg/dl (70-99); Potassium 4.3 mmol/L (3.5-5.1); Sodium 141 mmol/L (136-145)
[2020-07-07 07:16] LABS: Alkaline Phosphatase 62 U/L (45-117); Bilirubin,Total 0.4 mg/dl (0.2-1); Total Protein 6.8 gm/dl (6.4-8.2)
[2020-07-07] MEDS: modafiniL 100 MG TAB PO SCH ×2 (09:22→12:04)
[2020-07-07] MEDS: dexAMETHasone 6 MG in SYRINGE 0 ML IV SCH (09:22)
[2020-07-07] MEDS: guaiFENesin 600 MG TABCR PO SCH ×2 (09:22→20:44)
[2020-07-07] MEDS: FAMOTIDINE 10 MG TABLET PO SCH ×2 (09:22→20:45)
[2020-07-07] MEDS: buPROPion SR 150 MG TABCR PO SCH ×2 (09:23→16:26)
[2020-07-07] MEDS: DOXYCYCLINE HYCLATE 100 MG CAP PO SCH ×2 (09:23→20:44)
[2020-07-07] MEDS: ADVANCED PROBIOTIC 1250 MG CAPSULE PO SCH (09:23)
[2020-07-07] MEDS: MULTIVITAMIN TAB PO SCH (09:24)
[2020-07-07] MEDS: ENOXAPARIN INJ 40 MG/0.4 ML SYR SQ SCH (09:25)
[2020-07-07] MEDS: REMDESIVIR 100 MG in SODIUM CHLORIDE 0.9% 230 ML IV SCH (12:04)
[2020-07-07] MEDS: SODIUM CHLORIDE 0.9% 10ML FLUSH IV SCH (14:03)
[2020-07-07] MEDS: LEVALBUTEROL TARTRATE 15 GM HFA.AER.AD INH PRN (14:34)
--- NOTE | 2020-07-07 16:38 | Hospitalist Progress Note ---
Date of Service July 07, 2020 Assessment & Plan (1) Pneumonia due to COVID-19 virus: Multifocal COVID pneumonia -CTA: There is no evidence of pulmonary embolus in the main, lobar, or segmental pulmonary arteries. Multifocal airspace consolidation is seen throughout both lungs. The appearance is consistent with the reported history of a viral pneumonia. Radiographic follow-up to resolution is recommended. No pleural effusion is identified. Procalcitonin: 0.05 Troponin negative CRP:6.85 Ferritin:229 D-Dimer:1450 Blood Cultures: No growth to date Continue Remdesivir, Dexamethasone as per protocol Isolation precautions--Airborne/Contact Encourage frequent Proning Lasix as needed DVT prophylaxis with Lovenox Saturating low 90s on room air We will recheck inflammatory markers tomorrow Noted minimal AST elevation today Continue monitoring LFTs Mood disorder Stable Continue home medication Hypothyroidism Continue levothyroxine Hypokalemia Replace electrolytes as needed DVT Px: Lovenox SQ Code Status Full code Disposition Expected discharge home when medically stable Admission and Anticipated Discharge Date Admission Date: July 04, 2020 Subjective Patient is seen and examined at bedside Had a low-grade fever yesterday Patient was anxious during my encounter Afebrile today Cough, dyspnea continues to improve States having poor appetite Denies chest pain, nausea, vomiting, abdominal pain, diarrhea Saturating low 90s on room air Review of Systems Review of Systems: All systems reviewed & are unremarkable except as noted in HPI & below Physical Exam Physical Exam: Physical Exam: Vitals signs as noted above General Appearance:Moderately built and nourished, no apparent distress Head: normocephalic, Atraumatic Eyes: normal inspection, EOMI Neck: supple, Trachea midline Respiratory/Chest: Decreased breath sounds, CTA Cardiovascular: S1, S2, No murmur Abdomen/GI:Soft, Non tender, Bowel sounds present Extremities/Musculoskelatal:normal inspection, no edema Neurologic/Psych:AAOX3, grossly no focal neurological deficits Skin: normal color, warm Results & Data Results & Data ([facility]) Vital Signs (Past 12 Hours) Vital Signs Temp Pulse Resp BP BP Pulse Ox 07/07/20 15:12 37.1 C 78 20 96/63 L 90 07/07/20 14:34 76 21 91 07/07/20 09:11 36.9 C 76 16 94/60 L 94 07/07/20 05:31 36.8 C 67 18 102/64 96 Laboratory Results Short CBC 07/07/20 Range/Units 05:45 WBC 2.81 L (4.8-10.8) K/uL Hgb 11.5 L (12.0-16.0) g/dL Hct 34.4 L (37-47) % Plt Count 173 (130-400) K/uL BMP 07/07/20 05:45 Sodium 141 Potassium 4.3 D Chloride 111 H Carbon Dioxide 24 BUN 21 H D Creatinine 0.76 Glucose 72 Calcium 8.4 L Liver Function 07/07/20 Range/Units 05:45 Total Bilirubin 0.4 (0.2-1) mg/dl Direct Bilirubin < 0.1 (0-0.2) mg/dl AST 54 H (15-37) U/L ALT 66 (12-78) U/L Alkaline Phosphatase 62 (45-117) U/L Albumin 3.0 L (3.4-5.0) gm/dl
[2020-07-07] MEDS: PROMETHAZINE HCL 12.5 MG in SODIUM CHLORIDE 0.9% 50 ML IV PRN (20:38)
[2020-07-07] MEDS: ESCITALOPRAM OXALATE 10 MG TAB PO SCH (20:44)
[2020-07-08] MEDS: LEVOTHYROXINE SODIUM 100 MCG TABLET PO SCH (05:36)
[2020-07-08 06:48] LABS: Hematocrit (blood only) 34.6 % (37-47); Mean Corpuscular Hemoglobin 31.2 pg (25-34); Mean Corpuscular Hgb Conc 34.7 g/dL (32-36); Mean Corpuscular Volume 89.9 fL (80-100); Mean Platelet Volume 9.6 fL (7.4-10.4); Platelet Count 227 K/uL (130-400); RDW Coefficient of Variation 13.9 % (11.5-14.5); RDW Standard Deviation 45.6 fL (36.4-46.3); Red Blood Count 3.85 M/uL (4.2-5.4); White Blood Count 3.43 K/uL (4.8-10.8)
[2020-07-08 07:19] LABS: Alanine Aminotransferase 71 U/L (12-78); Aspartate Aminotransferase 42 U/L (15-37); BUN Creatinine Ratio 22.6 (10-20); Bilirubin Direct < 0.1 mg/dl (0-0.2); Blood Urea Nitrogen 17 mg/dl (7-18); Calcium 8.5 mg/dl (8.5-10.1); Carbon Dioxide 25 mmol/L (21-32); Chloride 107 mmol/L (98-107); Creatinine Clr Calc Pharmacy 94.5 ml/min; Est GFR (African American) 104.7; Est GFR (Non-African American) 90.4; Glucose 72 mg/dl (70-99); Sodium 140 mmol/L (136-145)
[2020-07-08 07:23] LABS: Alkaline Phosphatase 65 U/L (45-117); Bilirubin,Total 0.3 mg/dl (0.2-1); C Reactive Protein 2.12 mg/dl (0-0.29); Ferritin 323.2 ng/ml (8-388); Total Protein 6.6 gm/dl (6.4-8.2)
[2020-07-08] MEDS: ENOXAPARIN INJ 40 MG/0.4 ML SYR SQ SCH (08:35)
[2020-07-08] MEDS: dexAMETHasone 6 MG in SYRINGE 0 ML IV SCH (08:36)
[2020-07-08] MEDS: guaiFENesin 600 MG TABCR PO SCH ×2 (08:36→20:58)
[2020-07-08] MEDS: ADVANCED PROBIOTIC 1250 MG CAPSULE PO SCH (08:36)
[2020-07-08] MEDS: FAMOTIDINE 10 MG TABLET PO SCH ×2 (08:37→20:58)
[2020-07-08] MEDS: MULTIVITAMIN TAB PO SCH (08:37)
[2020-07-08] MEDS: DOXYCYCLINE HYCLATE 100 MG CAP PO SCH ×2 (08:37→20:58)
[2020-07-08] MEDS: buPROPion SR 150 MG TABCR PO SCH ×2 (08:38→17:36)
[2020-07-08] MEDS: modafiniL 100 MG TAB PO SCH ×2 (09:37→12:15)
[2020-07-08] MEDS: REMDESIVIR 100 MG in SODIUM CHLORIDE 0.9% 230 ML IV SCH (12:15)
[2020-07-08] MEDS: SODIUM CHLORIDE 0.9% 10ML FLUSH IV SCH (14:07)
--- NOTE | 2020-07-08 15:40 | Hospitalist Progress Note ---
Date of Service July 08, 2020 Assessment & Plan (1) Pneumonia due to COVID-19 virus: Multifocal COVID pneumonia -CTA: There is no evidence of pulmonary embolus in the main, lobar, or segmental pulmonary arteries. Multifocal airspace consolidation is seen throughout both lungs. The appearance is consistent with the reported history of a viral pneumonia. Radiographic follow-up to resolution is recommended. No pleural effusion is identified. Procalcitonin: 0.05 Troponin negative CRP:6.85>2.12 Ferritin:229 D-Dimer:1450 Blood Cultures: No growth to date Continue Remdesivir, Dexamethasone as per protocol Isolation precautions--Airborne/Contact Encourage frequent Proning Lasix as needed DVT prophylaxis with Lovenox Continue monitoring LFTs Clinically improving Saturating well on room air Mood disorder Stable Continue home medication Hypothyroidism Continue levothyroxine Hypokalemia Replace electrolytes as needed Resolved DVT Px: Lovenox SQ Code Status Full code Disposition Expected discharge home tomorrow if stable Admission and Anticipated Discharge Date Admission Date: July 04, 2020 Subjective Patient is seen and examined at bedside States feeling much better today Afebrile today Less Cough, dyspnea on exertion today Appetite remains poor Denies chest pain, nausea, vomiting, abdominal pain, diarrhea Saturating well on room air Review of Systems Review of Systems: All systems reviewed & are unremarkable except as noted in HPI & below Physical Exam Physical Exam: Physical Exam: Vitals signs as noted above General Appearance:Moderately built and nourished, no apparent distress Head: normocephalic, Atraumatic Eyes: normal inspection, EOMI Neck: supple, Trachea midline Respiratory/Chest: Decreased breath sounds, minimal basal crackles Cardiovascular: S1, S2, No murmur Abdomen/GI:Soft, Non tender, Bowel sounds present Extremities/Musculoskelatal:normal inspection, no edema Neurologic/Psych:AAOX3, grossly no focal neurological deficits Skin: normal color, warm Results & Data Results & Data ([facility]) Vital Signs (Past 12 Hours) Vital Signs Temp Pulse Resp BP BP Pulse Ox 07/08/20 14:10 36.8 C 73 18 97/63 L 95 07/08/20 08:29 36.7 C 75 18 104/69 93 07/08/20 05:37 36.7 C 69 18 111/72 94 Laboratory Results Short CBC 07/08/20 Range/Units 06:05 WBC 3.43 L (4.8-10.8) K/uL Hgb 12.0 (12.0-16.0) g/dL Hct 34.6 L (37-47) % Plt Count 227 (130-400) K/uL BMP 07/08/20 06:05 Sodium 140 Potassium 4.0 Chloride 107 Carbon Dioxide 25 BUN 17 Creatinine 0.75 Glucose 72 Calcium 8.5 Liver Function 07/08/20 Range/Units 06:05 Total Bilirubin 0.3 (0.2-1) mg/dl Direct Bilirubin < 0.1 (0-0.2) mg/dl AST 42 H (15-37) U/L ALT 71 (12-78) U/L Alkaline Phosphatase 65 (45-117) U/L Albumin 3.0 L (3.4-5.0) gm/dl
[2020-07-08] MEDS: PROMETHAZINE HCL 12.5 MG in SODIUM CHLORIDE 0.9% 50 ML IV PRN (20:37)
[2020-07-08] MEDS: ESCITALOPRAM OXALATE 10 MG TAB PO SCH (20:58)
[2020-07-09] MEDS: LEVOTHYROXINE SODIUM 100 MCG TABLET PO SCH (05:58)
[2020-07-09 08:11] LABS: Hematocrit (blood only) 35.3 % (37-47); Hemoglobin 12.1 g/dL (12.0-16.0); Mean Corpuscular Hemoglobin 30.6 pg (25-34); Mean Corpuscular Hgb Conc 34.3 g/dL (32-36); Mean Corpuscular Volume 89.4 fL (80-100); Mean Platelet Volume 9.4 fL (7.4-10.4); Platelet Count 230 K/uL (130-400); RDW Coefficient of Variation 13.6 % (11.5-14.5); RDW Standard Deviation 44.9 fL (36.4-46.3); Red Blood Count 3.95 M/uL (4.2-5.4); White Blood Count 4.05 K/uL (4.8-10.8)
[2020-07-09] MEDS: dexAMETHasone 6 MG in SYRINGE 0 ML IV SCH (08:25)
[2020-07-09] MEDS: ENOXAPARIN INJ 40 MG/0.4 ML SYR SQ SCH (08:26)
[2020-07-09] MEDS: DOXYCYCLINE HYCLATE 100 MG CAP PO SCH (08:28)
[2020-07-09] MEDS: guaiFENesin 600 MG TABCR PO SCH (08:28)
[2020-07-09] MEDS: ADVANCED PROBIOTIC 1250 MG CAPSULE PO SCH (08:29)
[2020-07-09] MEDS: MULTIVITAMIN TAB PO SCH (08:29)
[2020-07-09] MEDS: buPROPion SR 150 MG TABCR PO SCH (08:29)
[2020-07-09] MEDS: FAMOTIDINE 10 MG TABLET PO SCH (08:29)
[2020-07-09] MEDS: PROMETHAZINE HCL 12.5 MG in SODIUM CHLORIDE 0.9% 50 ML IV PRN (08:54)
[2020-07-09] MEDS: modafiniL 100 MG TAB PO SCH ×2 (08:55→12:21)
[2020-07-09 09:10] LABS: Alanine Aminotransferase 67 U/L (12-78); Aspartate Aminotransferase 34 U/L (15-37); Blood Urea Nitrogen 21 mg/dl (7-18); Calcium 8.4 mg/dl (8.5-10.1); Carbon Dioxide 23 mmol/L (21-32); Chloride 105 mmol/L (98-107); Creatinine Clr Calc Pharmacy 87.5 ml/min; Est GFR (African American) 95.4; Est GFR (Non-African American) 82.3; Glucose 82 mg/dl (70-99); Sodium 138 mmol/L (136-145)
[2020-07-09 09:13] LABS: Alkaline Phosphatase 73 U/L (45-117); Bilirubin Direct < 0.1 mg/dl (0-0.2); Bilirubin,Total 0.5 mg/dl (0.2-1); Total Protein 6.7 gm/dl (6.4-8.2)
[2020-07-09] MEDS: REMDESIVIR 100 MG in SODIUM CHLORIDE 0.9% 230 ML IV SCH (12:22)
[2020-07-09] MEDS: SODIUM CHLORIDE 0.9% 10ML FLUSH IV SCH (12:41)
--- NOTE | 2020-07-09 14:46 | Hospitalist Progress Note ---
Date of Service July 09, 2020 Assessment & Plan (1) Pneumonia due to COVID-19 virus: Multifocal COVID pneumonia -CTA: There is no evidence of pulmonary embolus in the main, lobar, or segmental pulmonary arteries. Multifocal airspace consolidation is seen throughout both lungs. The appearance is consistent with the reported history of a viral pneumonia. Radiographic follow-up to resolution is recommended. No pleural effusion is identified. Procalcitonin: 0.05 Troponin negative CRP:6.85>2.12 Ferritin:229 D-Dimer:1450 Blood Cultures: No growth to date Continue Remdesivir, Dexamethasone as per protocol Isolation precautions--Airborne/Contact Encourage frequent Proning Lasix as needed DVT prophylaxis with Lovenox Continue monitoring LFTs Clinically improved Saturating well on room air Plan to discharge home today Mood disorder Stable Continue home medication Hypothyroidism Continue levothyroxine Hypokalemia Replace electrolytes as needed Resolved DVT Px: Lovenox SQ Code Status Full code Disposition Expected discharge home tomorrow if stable Admission and Anticipated Discharge Date Admission Date: July 04, 2020 Subjective Patient is seen and examined at bedside Nauseous earlier today but resolved Otherwise states feeling much improved Dyspnea on exertion resolved Minimal intermittent cough Appetite slowly improving Denies chest pain, nausea, vomiting, abdominal pain, diarrhea Saturating well on room air Review of Systems Review of Systems: All systems reviewed & are unremarkable except as noted in HPI & below Physical Exam Physical Exam: Physical Exam: Vitals signs as noted above General Appearance:Moderately built and nourished, no apparent distress Head: normocephalic, Atraumatic Eyes: normal inspection, EOMI Neck: supple, Trachea midline Respiratory/Chest: Decreased breath sounds, CTA Cardiovascular: S1, S2, No murmur Abdomen/GI:Soft, Non tender, Bowel sounds present Extremities/Musculoskelatal:normal inspection, no edema Neurologic/Psych:AAOX3, grossly no focal neurological deficits Skin: normal color, warm Results & Data Results & Data ([facility]) Vital Signs (Past 12 Hours) Vital Signs Temp Pulse Resp BP Pulse Ox Pulse Ox 07/09/20 08:30 95 07/09/20 08:25 37.0 C 66 16 101/66 93 Laboratory Results Short CBC 07/09/20 Range/Units 07:40 WBC 4.05 L (4.8-10.8) K/uL Hgb 12.1 (12.0-16.0) g/dL Hct 35.3 L (37-47) % Plt Count 230 (130-400) K/uL BMP 07/09/20 07:40 Sodium 138 Potassium 4.0 Chloride 105 Carbon Dioxide 23 BUN 21 H Creatinine 0.81 Glucose 82 Calcium 8.4 L Liver Function 07/09/20 Range/Units 07:40 Total Bilirubin 0.5 (0.2-1) mg/dl Direct Bilirubin < 0.1 (0-0.2) mg/dl AST 34 (15-37) U/L ALT 67 (12-78) U/L Alkaline Phosphatase 73 (45-117) U/L Albumin 3.0 L (3.4-5.0) gm/dl
--- NOTE | 2020-07-09 14:56 | Discharge Summary ---
Date of Service July 09, 2020 Admission HPI Per Admitting Provider History obtained from patient and records. Medical history significant for mood disorder, hypothyroidism, gestational DM as per records. Eight days ago patient noted fever, chills, nausea, dry cough, chest congestion symptoms. Sick COVID-19 contacts at home. 2 days ago, patient noted chest heaviness and shortness of breath. Outpatient COVID-19 test was positive. Home care and quarantine recommended by PCP. Patient consulted ER for worsening symptoms. Patient uncomfortable going home. Medical History as above Surgical History : Bladder surgery, colposcopy Family History : Colon cancer, stroke Personal/Social history : Non-smoker, occasional Et[employer] intake, painting department supervisor Admission Exam Per Admitting Provider Physical Exam Physical Exam: GENERAL: Slightly uncomfortable, slightly anxious, pleasant, no respiratory distress SKIN: Normal color, warm HEENT: Bespectacled, pink palpebral conjunctivae, no ptosis, dry buccal mucosa NECK : Supple, no tenderness CHEST : Decreased breath sounds, anterior chest wall tenderness HEART : RRR, no obvious murmurs ABDOMEN: Some distention, nontender EXTREMITIES : No LE swelling/tenderness, no other conspicuous deformities noted NEUROLOGIC : Coherent, no facial asymmetry, no other gross focality Principal Diagnosis Multifocal COVID 19 Pneumonia Discharge Data Allergies Allergy/AdvReac Type Severity Reaction Status Date / Time amphetamine [From Adderall] Allergy Severe BLISTERED Verified 07/04/20 23:03 SORES ON ENTIRE BACK OF BODY dextroamphetamine Allergy Severe BLISTERED Verified 07/04/20 23:03 [From Adderall] SORES ON ENTIRE BACK OF BODY povidone-iodine Allergy Intermediate SKIN Verified 07/04/20 23:03 [From Betadine] IRRITATION IF EXPOSED soap [From Betadine] Allergy Intermediate SKIN Verified 07/04/20 23:03 IRRITATION IF EXPOSED Sulfa (Sulfonamide Allergy Intermediate TRAVIS Verified 07/04/20 23:03 Antibiotics) SYNDROME nickel Allergy Mild SKIN Verified 07/04/20 23:03 IRRITATION latex Allergy Rash Verified 07/05/20 03:36 zolpidem [From Ambien] Allergy Rash Verified 07/05/20 00:44 Consultations 07/04/20 21:44 ED Decision to Admit Stat Procedures Performed CTA: There is no evidence of pulmonary embolus in the main, lobar, or segmental pulmonary arteries. Multifocal airspace consolidation is seen throughout both lungs. The appearance is consistent with the reported history of a viral pneumonia. Radiographic follow-up to resolution is recommended. No pleural effusion is identified. Ordered Studies 07/04/20 21:19 CT angio chest PE protocol Urgent Hospital Course (1) Pneumonia due to COVID-19 virus: Multifocal COVID pneumonia -CTA: There is no evidence of pulmonary embolus in the main, lobar, or segmental pulmonary arteries. Multifocal airspace consolidation is seen throughout both lungs. The appearance is consistent with the reported history of a viral pneumonia. Radiographic follow-up to resolution is recommended. No pleural effusion is identified. Procalcitonin: 0.05 Troponin negative CRP:6.85>2.12 Ferritin:229 D-Dimer:1450 Blood Cultures: No growth to date Continue Remdesivir, Dexamethasone as per protocol Isolation precautions--Airborne/Contact Encourage frequent Proning Lasix as needed DVT prophylaxis with Lovenox Continue monitoring LFTs Clinically improved Saturating well on room air Plan to discharge home today Mood disorder Stable Continue home medication Hypothyroidism Continue levothyroxine Hypokalemia Replace electrolytes as needed Resolved DVT Px: Lovenox SQ Code Status Full code Disposition Expected discharge home tomorrow if stable Total Time Total Time Spent Total Time Spent (In Minutes): 42 minutes Total Time Includes: Examination of the Patient, Discharge Planning, Medication Reconciliation, Communication With Other Providers and Other Discharge Plan Discharge Items Patient Disposition: Home - Self-Care Reason For Visit: COVID PNX Discharge Diagnosis: Multifocal COVID 19 Pneumonia Activity: Per Instructions section Exercise/Sports: Gradually increase as tolerated Non-emergency contact: Primary Care Provider Call non-emergency contact if: you have any medication questions, your symptoms worsen, your pain is not controlled, your pain is worsening, your pain is unusual for you, your pain is concerning for you and you have a fever Follow-up/Referrals: Emma Howell DO [Primary Care Provider] - (Date & Time 07/13/2020 11:10 AM Provider Emma Howell DO [facility] PLEASE NOTE THAT THIS IS A TELEPHONE APPOINTMENT. YOUR PHYSICIAN WILL CALL YOU AT THE APPOINTMENT TIME. IF YOU HAVE ANY QUESTIONS REGARDING THIS APPOINTMENT, PLEASE CALL ) Diet: Regular Addtl Attending Provider Instructions: Follow-up with your primary care physician Dr. Howell on 07/13/2020 11:10 AM as scheduled Complete the prednisone course as prescribed. Prednisone course Start taking prednisone 40 mg daily for 2 days, then 30 mg daily for 2 days, then 20 mg daily for 2 days and stop. Continue frequent proning (Lying on sides, upright and on belly) as instructed. Continue monitoring your oxygen levels with using a pulse oximeter at home as advised. Seek immediate medical attention if your symptoms reoccur or worsen Home Isolation COVID-19 Instructions The following information about Home Isolation is from the CDC Website: https://www.cdc.gov/coronavirus/2019-ncov/hcp/yrnpihsp-fyodjbj-oouonk.html Stay home except to get medical care People who are mildly ill with COVID-19 are able to isolate at home during their illness. You should restrict activities outside your home, except for getting medical care. Do not go to work, school, or public areas. Avoid using public transportation, ride-sharing, or taxis. Separate yourself from other people and animals in your home People: As much as possible, you should stay in a specific room and away from other people in your home. Also, you should use a separate bathroom, if available. Animals: You should restrict contact with pets and other animals while you are sick with COVID-19, just like you would around other people. Although there have not been reports of pets or other animals becoming sick with COVID-19, it is still recommended that people sick with COVID-19 limit contact with animals until more information is known about the virus. When possible, have another member of your household care for your animals while you are sick. If you are sick with COVID-19, avoid contact with your pet, including petting, snuggling, being kissed or licked, and sharing food. If you must care for your pet or be around animals while you are sick, wash your hands before and after you interact with pets and wear a face mask. Call ahead before visiting your doctor If you have a medical appointment, call the healthcare provider and tell them that you have or may have COVID-19. This will help the healthcare providers office take steps to keep other people from getting infected or exposed. Wear a face mask You should wear a face mask when you are around other people (e.g., sharing a room or vehicle) or pets and before you enter a healthcare providers office. If you are not able to wear a face mask (for example, because it causes trouble breathing), then people who live with you should not stay in the same room with you, or they should wear a face mask if they enter your room. Cover your coughs and sneezes Cover your mouth and nose with a tissue when you cough or sneeze. Throw used tissues in a lined trash can. Immediately wash your hands with soap and water for at least 20 seconds or, if soap and water are not available, clean your hands with an alcohol-based hand industry operations investigator that contains at least 60% alcohol. Clean your hands often Wash your hands often with soap and water for at least 20 seconds, especially after blowing your nose, coughing, or sneezing; going to the bathroom; and before eating or preparing food. If soap and water are not readily available, use an alcohol-based hand industry operations investigator with at least 60% alcohol, covering all surfaces of your hands and rubbing them together until they feel dry. Soap and water are the best option if hands are visibly dirty. Avoid touching your eyes, nose, and mouth with unwashed hands. Avoid sharing personal household items You should not share dishes, drinking glasses, cups, eating utensils, towels, or bedding with other people or pets in your home. After using these items, they should be washed thoroughly with soap and water. Clean all high-touch surfaces everyday High touch surfaces include counters, tabletops, doorknobs, bathroom fixtures, toilets, phones, keyboards, tablets, and bedside tables. Also, clean any surfaces that may have blood, stool, or body fluids on them. Use a household cleaning spray or wipe, according to the label instructions. Labels contain instructions for safe and effective use of the cleaning product including precautions you should take when applying the product, such as wearing gloves and making sure you have good ventilation during use of the product. Monitor your symptoms Seek prompt medical attention if your illness is worsening (e.g., difficulty breathing).Beforeseeking care, call your healthcare provider and tell them that you have, or are being evaluated for, COVID-19. Put on a face mask before you enter the facility. These steps will help the healthcare providers office to keep other people in the office or waiting room from getting infected or exposed. Ask your healthcare provider to call the local or state health department. Persons who are placed under active monitoring or facilitated self- monitoring should follow instructions provided by their local health department or occupational health professionals, as appropriate. When working with your local health department check their available hours. If you have a medical emergency and need to call 911, notify the dispatch personnel that you have, or are being evaluated for COVID-19. If possible, put on a face mask before emergency medical services arrive. Discontinuing home isolation Patients with confirmed COVID-19 should remain under home isolation precautions until the risk of secondary transmission to others is thought to be low. The decision to discontinue home isolation precautions should be made on a fhfg-mg-wonj basis, in consultation with healthcare providers and state and local health departments. Coronavirus disease 2019 (COVID-19) is a virus that causes a respiratory illness. It is caused by a coronavirus called 2019 novel coronavirus (2019- nCoV). There are many types of coronavirus. Coronaviruses are a very common cause of bronchitis. They may sometimes cause lung infection(pneumonia). Symptoms can range from mild to severe respiratory illness. These viruses are also foundin some animals. COVID-19 was first found in people in [facility], in late 2019. In 2020, several cases of COVID-19 have been confirmed in the [place] Public health officials are working to find the source. How the virus spreads is not yet fully known. It may be spread through droplets of fluid that a person coughs or sneezes into the air. It may be spread if you touch a surface with virus on it, such as a handle or object, and then touch your mouth. What are the symptoms of COVID-19? Some people have no symptoms or mild symptoms. Symptoms may appear 2 to 14 days after contact with the virus. Symptoms can include: Fever Coughing Trouble breathing What are possible complications from COVID-19? In many cases, this virus can cause infection (pneumonia) in both lungs. In some cases, this can cause . How is COVID-19 diagnosed? Your healthcare provider will ask about your symptoms. He or she will also ask about your recent travel and contact with sick people. Testing for the virus is only done through the [facility]. If yourhealthcare provider thinks you may have COVID- 19, he or she will work with your local health department and the CDC on testing. Follow all instructions from your healthcare provider. COVID-19 is diagnosed by: Nasal and throat swab. A cotton-tipped swab is wiped inside your nose or throat. This is done to check for viruses in your nasal mucus. Sputum culture. A small sample of mucus coughed from your lungs (sputum) is collected if you have a cough. It is checked for the virus. How is COVID-19 treated? There is currently no medicine to treat the virus. Treatment is done to help your body while it fights the virus. This is known as supportive care. Supportive care may include: Pain medicine. These include acetaminophen and ibuprofen. They are used to help ease pain and reduce fever. Bed rest. This helps your body fight the illness. For severe illness, you may need to stay in the hospital. Care during severe illness may include: IV (intravenous) fluids.These are given through a vein to help keep your body hydrated. Oxygen. Supplemental oxygen or ventilation with a breathing machine (ventilator) may be given. This is done to keep enough oxygen in your body. Are you at risk for COVID-19? If youve been to a place where people have been sick with this virus, you are at risk for infection. You are at risk if you: Recently traveled to an affected area Had contact with a sick person who recently traveled to this area Had contact with a person who was diagnosed with COVID-19 How can COVID-19 be prevented? There is no vaccine yet. The best prevention is to not have contact with the virus. The CDC advises that people should not travel to areas where there are COVID-19 outbreaks right now for any reason that is not urgent. To help prevent spreading the infection, wash your hands often, or use an alcohol-basedhand industry operations investigator. If you are in an area with COVID-19: Wash your hands often. Or use an alcohol-based hand industry operations investigator often. Only touch your eyes, nose, or mouth with clean hands. Dont have contact with people who are sick. Follow local instructions about being in public. For example, you may be told to not use public transport for a period of time. Stay away from markets that have live or animals. Wash your hands after touching any animals. Don't touch animals that may be sick. Dont share eating or drinking tools with sick people. Dont kiss someone who is sick. Clean surfaces often with disinfectant. If you were in an area with COVID-19 in the last 14 days: Call your healthcare provider. He or she can talk with local health staff to see what action may be needed. Follow all instructions from your provider. Take your temperature every morning and evening for at least 14 days. This is to check for fever. Keep a record of the readings. Keep watch for symptoms of the virus. Tell your provider right away if you have symptoms. If you were in an area with COVID-19 and have a fever or other symptoms: Dont panic. Keep in mind that other illnesses can cause similar symptoms. Stay away from work, school, and public places. Limit physical contact with family members. Don't kiss anyone or share eating or drinking utensils. Clean surfaces you touch with disinfectant. This is to help prevent the virus from spreading. Call your healthcare provider. Explain that you have been exposed to COVID-19 and have symptoms. Do this before going to any hospital. Wait for instructions. Keep in mind that healthcare staff may wear protective equipment such as masks, gowns, gloves, and eye protection. You may be put in a separate room. This is to prevent the possible virus from spreading. Tell the healthcare staff about recent travel. This includes local travel on public transport. Staff may need to find other people you have been in contact with. Follow all instructions the healthcare staff give you. If you have been diagnosed with COVID-19 Follow all instructions from your healthcare provider. Dont leave your home, except to get medical care. Call your healthcare providers office before going. They can prepare and give you instructions. This will help prevent the virus from spreading. Dont go to work, school, or public areas. Dont use public transport or taxis. Stay away from other people in your home. Have them wear face masks around you. Dont share household items or food. Wear a face mask if you can. This includes at home or in a medical facility. Cover your face with a tissue when you cough or sneeze. Throw the tissue away. Wash your hands. Wash your hands often. Caregivers should: Follow all instructions from healthcare staff. Wear a face mask and protective clothing as advised. Wash hands often. Keep track of the sick persons symptoms. Clean surfaces, fabrics, and laundry thoroughly. Keep other people away from the sick person. When to call your healthcare provider Call your healthcare provider: If youve recently traveled and have symptoms If you have been diagnosed with COVID-19 and your symptoms are worse To learn more To find out more about COVID-19, visit the CDC website at www.cdc.gov/coronavirus/2019-ncov/index.html. [employer]. [address] [place] [address]. All rights reserved. This information is not intended as a substitute for professional medical care. Always follow your healthcare professional's instructions. This information has been adapted from [employer] Pending Studies at Discharge: No Stand-Alone Forms: My [facility] [employer], Smoking Cessation Medications and DC Order Prescriptions: New famotidine [Acid Sole Stapler Welt (famotidine)] 10 mg Tablet 10 mg PO BID Qty: 14 RF: 0 guaifenesin [Mucinex] 600 mg Tablet Extended Release 12hr 600 mg PO Q12 PRN (Reason: cough) Qty: 10 RF: 0 prednisone 10 mg tablet 10 mg PO UD Qty: 18 RF: 0 Continued bupropion HCl 150 mg tablet sustained-release 12 hr 150 mg PO BID17 RF: 0 levothyroxine 100 mcg tablet 100 mg PO DAILY RF: 0 escitalopram oxalate 10 mg tablet 10 mg PO HS RF: 0 multivitamin Tablet 1 tab PO DAILY RF: 0 modafinil 200 mg tablet See Rx Instructions .ROUTE .COMPLEX RF: 0 ondansetron 4 mg tablet,disintegrating 4 mg PO DIRECTED PRN (Reason: Nausea) RF: 0 omega 9-qce-olb-fish oil [Fish Oil] 1,200 (144-216) mg Capsule 1 cap PO DAILY RF: 0 Probiotic 10 billion cell Capsule 10,000 mmu cells PO DAILY RF: 0 turmeric 400 mg Capsule 400 mg PO DAILY RF: 0 Discharge Orders: Discharge Order (Routine); Ordered 07/09/20 Ordered By: Niraj Acosta Admission Data Admit Date/Time: 07/04/20 23:20 Attending Provider: Niraj Acosta Admit Provider: Bennett Eng Primary Care Provider: Emma Howell Other Providers: Bennett Eng Other Interventions: Discharge Summary Assessment (RN) Last Done: 07/09/20 15:10
== END 2020-07-09 15:52 | disposition home or self-care (01) | DRG 177 ==
LOC: ED 19:38 → 3N 23:20